=== PATIENT | male | born 1975 | race Caucasian/White ===

== ENCOUNTER 2017-06-09 04:32 | Inpatient (IN) | payer OTHER ==
[2017-06-09] MEDS ORDERED: BISACODYL (EC) 5 MG TAB PO (05:00)
[2017-06-09] MEDS ORDERED: NACL 0.9% 3 ML SYG IV (05:00)
[2017-06-09] MEDS ORDERED: ONDANSETRON 4 MG INJ IV (05:00)
[2017-06-09] MEDS ORDERED: DOCUSATE SODIUM 100 MG CAP PO (05:00)
[2017-06-09] MEDS: FUROSEMIDE 40 MG INJ IV (05:41)
[2017-06-09 06:11] LABS: ADD MAN DIFF? NO
[2017-06-09] MEDS: LEVOFLOXACIN 750MG/D5W (PMX) 150 ML IVPB (06:24)
[2017-06-09 06:25] LABS: BASOPHILS % 0.1 % (0.0-2.0); HEMOGLOBIN 15.4 g/dl (14.0-18.0); LYMPHOCYTES # 1.5 10^3/ul (0.8-2.9); LYMPHOCYTES % 9.7 % (15.0-51.0); MEAN CORPUSCULAR HEMOGLOBIN 32.8 pg (29.0-33.0); MEAN CORPUSCULAR VOLUME 93.6 fl (82.0-101.0); MEAN PLATELET VOLUME 9.8 fl (7.4-10.4); MONOCYTES % 6.2 % (0.0-11.0); NEUTROPHIL # 13.1 10^3/ul (1.6-7.5); NEUTROPHILS % 83.3 % (39.0-77.0); PLATELET COUNT 139 10^3/UL (140-415); RED CELL DISTRIBUTION WIDTH 12.6 % (11.5-14.5)
[2017-06-09 06:25] LABS: WHITE BLOOD COUNT 15.8 10^3/ul (4.8-10.8)
[2017-06-09] MEDS: QUETIAPINE 100 MG TAB PO ×2 (06:25→22:10)
[2017-06-09] MEDS: RISPERIDONE 2 MG TAB PO ×2 (06:25→22:10)
[2017-06-09 06:42] LABS: CREATINE KINASE 341 IU/L (23-200)
[2017-06-09 06:53] LABS: D-DIMER 990.22 ng/ml (<460)
[2017-06-09 06:54] LABS: CK INDEX 0.2; CK-MB 0.75 ng/ml (0.0-2.4); TROPONIN-I < 0.012 ng/ml (0.00-0.12)
[2017-06-09 07:03] LABS: ALANINE AMINOTRANSFERASE 36 IU/L (13-69); ALBUMIN 4.2 g/dl (3.3-4.9); ALBUMIN/GLOBULIN RATIO 1.13; ALKALINE PHOSPHATASE 84 IU/L (42-121); ANION GAP 16 (8-16); ASPARTATE AMINO TRANSFERASE 33 IU/L (15-46); BLOOD UREA NITROGEN 9 mg/dl (7-20); CALCIUM 9.3 mg/dl (8.4-10.2); CARBON DIOXIDE 24 mmol/L (21-31); CHLORIDE 107 mmol/L (97-110); CHOL/HDL RATIO 3.1 RATIO; CHOLESTEROL 145 mg/dl (100-200); CREATININE 0.52 mg/dl (0.61-1.24); GLUCOSE 165 mg/dl (70-220); HDL CHOLESTEROL 46 mg/dl (27-67); LDL CHOLESTEROL,CALCULATED 89 mg/dl; SODIUM 143 mmol/L (135-144); TOTAL PROTEIN 7.9 g/dl (6.1-8.1); TRIGLYCERIDES 52 mg/dl (0-149)
[2017-06-09 07:04] LABS: LACTIC ACID 1.5 mmol/L (0.5-2.0)
[2017-06-09 07:16] LABS: HEMOGLOBIN A1C 5.4 % (0-5.9)
[2017-06-09 07:46] LABS: B-TYPE NATRIURETIC PEPTIDE 37 PG/ML (0-125)
[2017-06-09 08:59] LABS: PLATELET COUNT 138 10^3/UL (140-415)
[2017-06-09] MEDS: ALBUTEROL/IPRATROPIUM (NEB) 3 ML AMP HHN ×4 (09:10→20:39)
[2017-06-09 09:20] LABS: INR 1.39; PROTIME 17.3 Sec (11.9-14.9); PT RATIO 1.4
[2017-06-09 09:21] LABS: PARTIAL THROMBOPLASTIN TIME 38.1 Sec (25.0-35.0)
[2017-06-09 09:32] LABS: THROMBIN TIME 12.8 SEC (13.8-19.1)
[2017-06-09] MEDS: LIDOCAINE 1% (MDV) 10 ML INJ (12:13)
[2017-06-09 12:46] LABS: CREATINE KINASE 277 IU/L (23-200)
[2017-06-09 12:59] LABS: FLD MN% 10.7 %; FLD PMN% 89.3 %; FLD RBC 38000 /uL
[2017-06-09 13:00] LABS: CK INDEX 0.2; CK-MB 0.61 ng/ml (0.0-2.4); FLUID AMYLASE 36 U/L; FLUID TYPE THORACENTESIS FLUID; TROPONIN-I < 0.012 ng/ml (0.00-0.12)
[2017-06-09 13:01] LABS: FLUID TOTAL PROTEIN 5.9 g/dl; FLUID TYPE THORACENTESIS FLUID
[2017-06-09 13:22] LABS: FLUID LD 2141 U/L
[2017-06-09 13:28] LABS: FLD WBC 23833 /cmm
[2017-06-09 13:29] LABS: FLD CLARITY CLOUDY; FLD COLOR RED; PATH REVIEW? YES
[2017-06-09 13:29] LABS: FLD TYPE THORACENTHESIS
[2017-06-09 13:38] LABS: FLUID GLUCOSE < 20 mg/dl; FLUID TYPE THORACENTESIS FLUID
[2017-06-09] MEDS: PROPRANOLOL 20 MG TAB PO ×2 (17:44→22:10)
[2017-06-09] MEDS: NICOTINE (7 MG/24 HR) PATCH TRANSDERM (17:44)
[2017-06-09] MEDS: morphine 2 MG INJ IV (17:44)
[2017-06-09] MEDS: DOCUSATE SODIUM 100 MG CAP PO (22:10)
[2017-06-09 22:31] LABS: SITE Left Upper Forearm; TIME 2210
[2017-06-10] MEDS: IPRATROPIUM (NEB) 0.5 MG/2.5 ML AMP HHN ×5 (01:54→16:18)
[2017-06-10] MEDS: LEVALBUTEROL (NEB) 0.63 MG/3 ML AMP HHN ×5 (01:54→16:19)
[2017-06-10] MEDS: LEVOFLOXACIN 750MG/D5W (PMX) 150 ML IVPB (05:41)
[2017-06-10 07:29] LABS: AADO2 Arterial 134.4 mmHg (7.0-24.0); Allen Test ACCEPTAB; Arterial Base Excess 0.7 mmol/L (-3.0-3); Arterial COHb 0.4 % (0.0-3.0); Arterial Fraction of Oxyhgb 90.4 % (93.0-99.0); Arterial HCO3 24.4 mmol/L (22.0-26.0); Arterial MetHb 0.3 % (0.0-1.5); Arterial Total Hemglobin 14.6 g/dl (12.0-18.0); Arterial pCO2 36.1 mmhg (35-45); MODE NASAL CANNULA; Site Right Radial
[2017-06-10] MEDS: NICOTINE (7 MG/24 HR) PATCH TRANSDERM (08:30)
[2017-06-10] MEDS: RISPERIDONE 2 MG TAB PO ×2 (08:30→20:37)
[2017-06-10] MEDS: QUETIAPINE 100 MG TAB PO ×2 (08:30→20:37)
[2017-06-10 08:31] LABS: ADD MAN DIFF? NO
[2017-06-10] MEDS: PROPRANOLOL 20 MG TAB PO ×2 (08:31→20:36)
[2017-06-10 08:36] LABS: ABNORMAL IP MESSAGE 1; BASOPHILS % 0.1 % (0.0-2.0); EOSINOPHILS % 0.1 % (0.0-7.0); HEMATOCRIT 40.6 % (42.0-52.0); HEMOGLOBIN 13.7 g/dl (14.0-18.0); LYMPHOCYTES # 2.9 10^3/ul (0.8-2.9); LYMPHOCYTES % 16.7 % (15.0-51.0); MEAN CORPUSCULAR HGB CONC 33.7 g/dl (32.0-37.0); MEAN CORPUSCULAR VOLUME 94.9 fl (82.0-101.0); MEAN PLATELET VOLUME 10.1 fl (7.4-10.4); MONOCYTE # 1.9 10^3/ul (0.3-0.9); MONOCYTES % 10.9 % (0.0-11.0); NEUTROPHIL # 12.6 10^3/ul (1.6-7.5); NEUTROPHILS % 71.5 % (39.0-77.0); PLATELET COUNT 154 10^3/UL (140-415); POSITIVE DIFF @See below; RED BLOOD COUNT 4.28 10^6/ul (4.70-6.10)
[2017-06-10 08:36] LABS: WHITE BLOOD COUNT 17.6 10^3/ul (4.8-10.8)
[2017-06-10 08:56] LABS: ALANINE AMINOTRANSFERASE 34 IU/L (13-69); ALBUMIN 3.8 g/dl (3.3-4.9); ALKALINE PHOSPHATASE 68 IU/L (42-121); ANION GAP 13 (8-16); ASPARTATE AMINO TRANSFERASE 21 IU/L (15-46); BILIRUBIN,INDIRECT 0.5 mg/dl (0-1.1); BILIRUBIN,TOTAL 0.5 mg/dl (0.2-1.3); BLOOD UREA NITROGEN 10 mg/dl (7-20); CALCIUM 8.9 mg/dl (8.4-10.2); CARBON DIOXIDE 28 mmol/L (21-31); CHLORIDE 105 mmol/L (97-110); CREATININE 0.61 mg/dl (0.61-1.24); GLUCOSE 116 mg/dl (70-220); PHOSPHORUS 3.2 mg/dl (2.5-4.9); POTASSIUM 3.7 mmol/L (3.5-5.1); SODIUM 142 mmol/L (135-144); TOTAL PROTEIN 7.6 g/dl (6.1-8.1)
[2017-06-10 09:34] LABS: PATH REVIEW CH
[2017-06-10] MEDS ORDERED: VANCOMYCIN IV PER PHARMACY XX (11:30)
[2017-06-10] MEDS: CEFEPIME 1GM/50 ML (PMX) 50 ML IVPB ×2 (14:09→20:49)
[2017-06-10] MEDS: VANCOMYCIN 2 GM in SOD CHLORIDE 0.9% 500 ML IVPB (14:40)
[2017-06-10] MEDS ORDERED: VANCOMYCIN 1.5 GM in SOD CHLORIDE 0.9% 250 ML IVPB (17:00)
[2017-06-10] MEDS ORDERED: VANCOMYCIN 1.75 GM in SOD CHLORIDE 0.9% 500 ML IVPB (17:00)
[2017-06-10 19:58] LABS: ANA SCREEN POSITIVE (NEGATIVE)
[2017-06-10] MEDS: DOCUSATE SODIUM 100 MG CAP PO (20:37)
[2017-06-10] MEDS: VANCOMYCIN 1.5 GM in SOD CHLORIDE 0.9% 250 ML IVPB (20:49)
[2017-06-11] MEDS: LEVALBUTEROL (NEB) 0.63 MG/3 ML AMP HHN ×4 (00:17→23:46)
[2017-06-11] MEDS: IPRATROPIUM (NEB) 0.5 MG/2.5 ML AMP HHN ×4 (00:17→23:46)
[2017-06-11] MEDS: VANCOMYCIN 1.5 GM in SOD CHLORIDE 0.9% 250 ML IVPB ×2 (04:20→12:00)
[2017-06-11] MEDS: QUETIAPINE 100 MG TAB PO ×2 (08:17→21:24)
[2017-06-11] MEDS: RISPERIDONE 2 MG TAB PO ×2 (08:17→21:24)
[2017-06-11] MEDS: PROPRANOLOL 20 MG TAB PO ×2 (08:18→21:26)
[2017-06-11] MEDS: CEFEPIME 1GM/50 ML (PMX) 50 ML IVPB ×2 (08:22→21:21)
[2017-06-11 11:49] LABS: VANCOMYCIN,TROUGH 11.4 ug/ml (10.0-20.0)
[2017-06-11] MEDS: ACETAMINOPHEN 325 MG TAB PO ×2 (12:18→22:17)
[2017-06-11 13:18] LABS: ANA PATTERN NUCLEOLAR
[2017-06-11 15:32] LABS: NIL 0.02 IU/mL; QUANTIFERON(R)-TB GOLD POSITIVE (NEGATIVE); TB-NIL 3.36 IU/mL
[2017-06-11] MEDS: DOCUSATE SODIUM 100 MG CAP PO (21:24)
[2017-06-11] MEDS: VANCOMYCIN 2 GM in SOD CHLORIDE 0.9% 500 ML IVPB (22:03)
[2017-06-11 22:16] LABS: FORTY EIGHT HOUR READING 25 mm (0-9)
[2017-06-12] MEDS: VANCOMYCIN 2 GM in SOD CHLORIDE 0.9% 500 ML IVPB ×3 (04:21→23:11)
[2017-06-12 05:39] LABS: ADD MAN DIFF? NO
[2017-06-12 05:44] LABS: ABNORMAL IP MESSAGE 1; BASOPHILS % 0.3 % (0.0-2.0); EOSINOPHILS # 0.2 10^3/ul (0.0-0.5); EOSINOPHILS % 1.2 % (0.0-7.0); HEMATOCRIT 41.6 % (42.0-52.0); LYMPHOCYTES # 2.3 10^3/ul (0.8-2.9); LYMPHOCYTES % 17.3 % (15.0-51.0); MEAN CORPUSCULAR HEMOGLOBIN 32.4 pg (29.0-33.0); MEAN CORPUSCULAR HGB CONC 33.7 g/dl (32.0-37.0); MEAN CORPUSCULAR VOLUME 96.3 fl (82.0-101.0); MEAN PLATELET VOLUME 10.2 fl (7.4-10.4); MONOCYTE # 1.7 10^3/ul (0.3-0.9); MONOCYTES % 12.8 % (0.0-11.0); NEUTROPHILS % 67.7 % (39.0-77.0); PLATELET COUNT 155 10^3/UL (140-415); POSITIVE DIFF @See below; RED BLOOD COUNT 4.32 10^6/ul (4.70-6.10); RED CELL DISTRIBUTION WIDTH 12.9 % (11.5-14.5)
[2017-06-12 05:44] LABS: WHITE BLOOD COUNT 13.3 10^3/ul (4.8-10.8)
[2017-06-12 06:04] LABS: ANION GAP 16 (8-16); BLOOD UREA NITROGEN 8 mg/dl (7-20); CALCIUM 8.8 mg/dl (8.4-10.2); CARBON DIOXIDE 23 mmol/L (21-31); CHLORIDE 103 mmol/L (97-110); CREATININE 0.58 mg/dl (0.61-1.24); GLUCOSE 140 mg/dl (70-220); MAGNESIUM 1.8 mg/dl (1.7-2.5); PHOSPHORUS 3.7 mg/dl (2.5-4.9); POTASSIUM 3.8 mmol/L (3.5-5.1); SODIUM 138 mmol/L (135-144)
[2017-06-12] MEDS: IPRATROPIUM (NEB) 0.5 MG/2.5 ML AMP HHN ×2 (07:43→17:30)
[2017-06-12] MEDS: LEVALBUTEROL (NEB) 0.63 MG/3 ML AMP HHN ×2 (07:43→17:30)
[2017-06-12] MEDS: QUETIAPINE 100 MG TAB PO ×2 (09:09→21:35)
[2017-06-12] MEDS: CEFEPIME 1GM/50 ML (PMX) 50 ML IVPB ×2 (09:10→21:34)
[2017-06-12] MEDS: RISPERIDONE 2 MG TAB PO ×2 (09:10→21:35)
[2017-06-12] MEDS: PROPRANOLOL 20 MG TAB PO ×2 (13:14→21:34)
[2017-06-12] MEDS: ENOXAPARIN 40 MG/0.4 ML SYG SC (18:14)
[2017-06-12 21:16] LABS: SEVENTY TWO HOUR READING 25 mm (0-9)
[2017-06-12] MEDS: DOCUSATE SODIUM 100 MG CAP PO (21:34)
[2017-06-12 22:31] LABS: VANCOMYCIN,TROUGH 6.1 ug/ml (10.0-20.0)
[2017-06-13] MEDS: LEVALBUTEROL (NEB) 0.63 MG/3 ML AMP HHN ×3 (00:12→17:07)
[2017-06-13] MEDS: IPRATROPIUM (NEB) 0.5 MG/2.5 ML AMP HHN ×3 (00:12→17:08)
[2017-06-13 05:38] LABS: ADD MAN DIFF? NO
[2017-06-13 05:40] LABS: WHITE BLOOD COUNT 13.8 10^3/ul (4.8-10.8)
[2017-06-13 05:40] LABS: ABNORMAL IP MESSAGE 1; BASOPHILS % 0.3 % (0.0-2.0); EOSINOPHILS # 0.2 10^3/ul (0.0-0.5); EOSINOPHILS % 1.3 % (0.0-7.0); HEMATOCRIT 39.5 % (42.0-52.0); HEMOGLOBIN 13.4 g/dl (14.0-18.0); LYMPHOCYTES # 2.3 10^3/ul (0.8-2.9); LYMPHOCYTES % 16.4 % (15.0-51.0); MEAN CORPUSCULAR HEMOGLOBIN 32.5 pg (29.0-33.0); MEAN CORPUSCULAR HGB CONC 33.9 g/dl (32.0-37.0); MEAN CORPUSCULAR VOLUME 95.9 fl (82.0-101.0); MEAN PLATELET VOLUME 9.8 fl (7.4-10.4); MONOCYTE # 1.8 10^3/ul (0.3-0.9); MONOCYTES % 13.3 % (0.0-11.0); NEUTROPHIL # 9.4 10^3/ul (1.6-7.5); NEUTROPHILS % 67.8 % (39.0-77.0); PLATELET COUNT 157 10^3/UL (140-415); POSITIVE DIFF @See below; RED BLOOD COUNT 4.12 10^6/ul (4.70-6.10); RED CELL DISTRIBUTION WIDTH 12.8 % (11.5-14.5)
[2017-06-13 05:59] LABS: INR 1.42; PROTIME 17.6 Sec (11.9-14.9); PT RATIO 1.4
[2017-06-13] MEDS: VANCOMYCIN 2 GM in SOD CHLORIDE 0.9% 500 ML IVPB ×3 (06:02→23:11)
[2017-06-13 06:09] LABS: ANION GAP 14 (8-16); BLOOD UREA NITROGEN 7 mg/dl (7-20); CALCIUM 8.4 mg/dl (8.4-10.2); CARBON DIOXIDE 27 mmol/L (21-31); CHLORIDE 105 mmol/L (97-110); CREATININE 0.49 mg/dl (0.61-1.24); GLUCOSE 120 mg/dl (70-220); POTASSIUM 3.9 mmol/L (3.5-5.1); SODIUM 142 mmol/L (135-144)
[2017-06-13] MEDS: RISPERIDONE 2 MG TAB PO ×2 (10:06→21:23)
[2017-06-13] MEDS: QUETIAPINE 100 MG TAB PO ×2 (10:06→21:22)
[2017-06-13] MEDS: CEFEPIME 1GM/50 ML (PMX) 50 ML IVPB ×2 (10:07→21:21)
[2017-06-13] MEDS: PROPRANOLOL 20 MG TAB PO ×2 (10:07→21:22)
[2017-06-13] MEDS: DOCUSATE SODIUM 100 MG CAP PO (21:22)
[2017-06-14] MEDS: LEVALBUTEROL (NEB) 0.63 MG/3 ML AMP HHN ×3 (00:23→15:52)
[2017-06-14] MEDS: IPRATROPIUM (NEB) 0.5 MG/2.5 ML AMP HHN ×3 (00:23→15:52)
[2017-06-14 06:17] LABS: ADD MAN DIFF? NO
[2017-06-14 06:19] LABS: ABNORMAL IP MESSAGE 1; BASOPHIL # 0.1 10^3/ul (0.0-0.1); BASOPHILS % 0.4 % (0.0-2.0); EOSINOPHILS # 0.3 10^3/ul (0.0-0.5); EOSINOPHILS % 2.4 % (0.0-7.0); HEMATOCRIT 38.7 % (42.0-52.0); HEMOGLOBIN 12.9 g/dl (14.0-18.0); LYMPHOCYTES # 2.7 10^3/ul (0.8-2.9); LYMPHOCYTES % 19.9 % (15.0-51.0); MEAN CORPUSCULAR HEMOGLOBIN 32.3 pg (29.0-33.0); MEAN CORPUSCULAR HGB CONC 33.3 g/dl (32.0-37.0); MEAN PLATELET VOLUME 10.1 fl (7.4-10.4); MONOCYTE # 1.7 10^3/ul (0.3-0.9); MONOCYTES % 12.5 % (0.0-11.0); NEUTROPHIL # 8.7 10^3/ul (1.6-7.5); NEUTROPHILS % 63.9 % (39.0-77.0); PLATELET COUNT 164 10^3/UL (140-415); POSITIVE DIFF @See below; RED BLOOD COUNT 3.99 10^6/ul (4.70-6.10); RED CELL DISTRIBUTION WIDTH 12.8 % (11.5-14.5)
[2017-06-14 06:19] LABS: WHITE BLOOD COUNT 13.6 10^3/ul (4.8-10.8)
[2017-06-14 06:40] LABS: VANCOMYCIN,TROUGH 21.7 ug/ml (10.0-20.0)
[2017-06-14] MEDS: CEFEPIME 1GM/50 ML (PMX) 50 ML IVPB ×2 (08:40→20:37)
[2017-06-14] MEDS: QUETIAPINE 100 MG TAB PO ×2 (08:41→20:35)
[2017-06-14] MEDS: RISPERIDONE 2 MG TAB PO ×2 (08:42→20:35)
[2017-06-14] MEDS: PROPRANOLOL 20 MG TAB PO ×2 (08:43→20:37)
[2017-06-14] MEDS: VANCOMYCIN 1.25 GM in SOD CHLORIDE 0.9% 250 ML IVPB ×2 (11:17→17:42)
[2017-06-14] MEDS: DOCUSATE SODIUM 100 MG CAP PO (20:35)
[2017-06-15] MEDS: IPRATROPIUM (NEB) 0.5 MG/2.5 ML AMP HHN ×3 (00:39→15:01)
[2017-06-15] MEDS: LEVALBUTEROL (NEB) 0.63 MG/3 ML AMP HHN ×3 (00:39→15:01)
[2017-06-15] MEDS: VANCOMYCIN 1.25 GM in SOD CHLORIDE 0.9% 250 ML IVPB ×3 (02:48→18:00)
[2017-06-15 06:14] LABS: ADD MAN DIFF? NO
[2017-06-15 06:31] LABS: BASOPHILS % 0.3 % (0.0-2.0); EOSINOPHILS # 0.3 10^3/ul (0.0-0.5); EOSINOPHILS % 2.8 % (0.0-7.0); HEMATOCRIT 38.8 % (42.0-52.0); LYMPHOCYTES # 2.3 10^3/ul (0.8-2.9); LYMPHOCYTES % 19.7 % (15.0-51.0); MEAN CORPUSCULAR HEMOGLOBIN 32.3 pg (29.0-33.0); MEAN CORPUSCULAR HGB CONC 33.5 g/dl (32.0-37.0); MEAN CORPUSCULAR VOLUME 96.3 fl (82.0-101.0); MEAN PLATELET VOLUME 9.9 fl (7.4-10.4); MONOCYTE # 1.4 10^3/ul (0.3-0.9); MONOCYTES % 12.5 % (0.0-11.0); NEUTROPHIL # 7.3 10^3/ul (1.6-7.5); NEUTROPHILS % 63.5 % (39.0-77.0); PLATELET COUNT 168 10^3/UL (140-415); RED BLOOD COUNT 4.03 10^6/ul (4.70-6.10); RED CELL DISTRIBUTION WIDTH 12.8 % (11.5-14.5)
[2017-06-15 06:31] LABS: WHITE BLOOD COUNT 11.5 10^3/ul (4.8-10.8)
[2017-06-15 06:53] LABS: ANION GAP 14 (8-16); BLOOD UREA NITROGEN 8 mg/dl (7-20); CALCIUM 8.7 mg/dl (8.4-10.2); CARBON DIOXIDE 27 mmol/L (21-31); CHLORIDE 104 mmol/L (97-110); CREATININE 0.55 mg/dl (0.61-1.24); GLUCOSE 110 mg/dl (70-220); SODIUM 141 mmol/L (135-144)
[2017-06-15] MEDS: CEFEPIME 1GM/50 ML (PMX) 50 ML IVPB ×2 (09:01→21:54)
[2017-06-15] MEDS: QUETIAPINE 100 MG TAB PO ×2 (09:01→21:54)
[2017-06-15] MEDS: RISPERIDONE 2 MG TAB PO ×2 (09:01→21:54)
[2017-06-15] MEDS: PROPRANOLOL 20 MG TAB PO ×2 (09:02→21:55)
[2017-06-15] MEDS: LACTOBACILLUS RHAMNOSUS CAP PO ×2 (13:41→21:55)
[2017-06-15] MEDS: ENOXAPARIN 40 MG/0.4 ML SYG SC (13:41)
[2017-06-15 17:52] LABS: VANCOMYCIN,TROUGH < 5.0 ug/ml (10.0-20.0)
[2017-06-15] MEDS: DOCUSATE SODIUM 100 MG CAP PO (21:55)
[2017-06-15] MEDS: VANCOMYCIN 500MG/NS (PMX) 100 ML IVPB (23:04)
[2017-06-16] MEDS: LEVALBUTEROL (NEB) 0.63 MG/3 ML AMP HHN ×4 (01:21→23:29)
[2017-06-16] MEDS: IPRATROPIUM (NEB) 0.5 MG/2.5 ML AMP HHN ×4 (01:22→23:29)
[2017-06-16] MEDS: VANCOMYCIN 1.75 GM in SOD CHLORIDE 0.9% 500 ML IVPB ×3 (02:48→18:34)
[2017-06-16 04:48] LABS: ADD MAN DIFF? NO
[2017-06-16 04:54] LABS: BASOPHIL # 0.1 10^3/ul (0.0-0.1); BASOPHILS % 0.5 % (0.0-2.0); EOSINOPHILS # 0.3 10^3/ul (0.0-0.5); EOSINOPHILS % 2.9 % (0.0-7.0); HEMATOCRIT 37.7 % (42.0-52.0); HEMOGLOBIN 12.4 g/dl (14.0-18.0); LYMPHOCYTES # 2.1 10^3/ul (0.8-2.9); LYMPHOCYTES % 19.1 % (15.0-51.0); MEAN CORPUSCULAR HEMOGLOBIN 31.7 pg (29.0-33.0); MEAN CORPUSCULAR HGB CONC 32.9 g/dl (32.0-37.0); MEAN CORPUSCULAR VOLUME 96.4 fl (82.0-101.0); MEAN PLATELET VOLUME 9.5 fl (7.4-10.4); MONOCYTE # 1.2 10^3/ul (0.3-0.9); MONOCYTES % 10.6 % (0.0-11.0); NEUTROPHIL # 7.3 10^3/ul (1.6-7.5); PLATELET COUNT 168 10^3/UL (140-415); RED BLOOD COUNT 3.91 10^6/ul (4.70-6.10); RED CELL DISTRIBUTION WIDTH 12.7 % (11.5-14.5)
[2017-06-16 04:54] LABS: WHITE BLOOD COUNT 11.1 10^3/ul (4.8-10.8)
[2017-06-16 05:16] LABS: ANION GAP 13 (8-16); BLOOD UREA NITROGEN 7 mg/dl (7-20); CALCIUM 8.8 mg/dl (8.4-10.2); CARBON DIOXIDE 28 mmol/L (21-31); CHLORIDE 103 mmol/L (97-110); CREATININE 0.58 mg/dl (0.61-1.24); GLUCOSE 154 mg/dl (70-220); POTASSIUM 3.7 mmol/L (3.5-5.1); SODIUM 140 mmol/L (135-144)
[2017-06-16] MEDS: PROPRANOLOL 20 MG TAB PO ×2 (09:22→21:22)
[2017-06-16] MEDS: CEFEPIME 1GM/50 ML (PMX) 50 ML IVPB ×2 (09:22→23:52)
[2017-06-16] MEDS: LACTOBACILLUS RHAMNOSUS CAP PO ×2 (09:22→21:21)
[2017-06-16] MEDS: RISPERIDONE 2 MG TAB PO ×2 (09:23→21:22)
[2017-06-16] MEDS: QUETIAPINE 100 MG TAB PO ×2 (09:23→21:21)
[2017-06-16] MEDS: ENOXAPARIN 40 MG/0.4 ML SYG SC (09:24)
[2017-06-16] MEDS: DOCUSATE SODIUM 100 MG CAP PO (21:21)
[2017-06-16] MEDS ORDERED: VANCOMYCIN IV PER PHARMACY XX (22:30)
[2017-06-17] MEDS: VANCOMYCIN 1.75 GM in SOD CHLORIDE 0.9% 500 ML IVPB ×3 (01:59→18:06)
[2017-06-17 05:50] LABS: ADD MAN DIFF? NO
[2017-06-17 05:58] LABS: WHITE BLOOD COUNT 12.2 10^3/ul (4.8-10.8)
[2017-06-17 05:58] LABS: BASOPHILS % 0.3 % (0.0-2.0); EOSINOPHILS # 0.3 10^3/ul (0.0-0.5); EOSINOPHILS % 2.8 % (0.0-7.0); HEMATOCRIT 37.4 % (42.0-52.0); HEMOGLOBIN 12.5 g/dl (14.0-18.0); LYMPHOCYTES # 2.1 10^3/ul (0.8-2.9); LYMPHOCYTES % 16.8 % (15.0-51.0); MEAN CORPUSCULAR HEMOGLOBIN 32.1 pg (29.0-33.0); MEAN CORPUSCULAR HGB CONC 33.4 g/dl (32.0-37.0); MEAN CORPUSCULAR VOLUME 95.9 fl (82.0-101.0); MEAN PLATELET VOLUME 9.9 fl (7.4-10.4); MONOCYTE # 1.3 10^3/ul (0.3-0.9); MONOCYTES % 10.6 % (0.0-11.0); NEUTROPHIL # 8.4 10^3/ul (1.6-7.5); NEUTROPHILS % 68.8 % (39.0-77.0); PLATELET COUNT 166 10^3/UL (140-415); RED CELL DISTRIBUTION WIDTH 12.8 % (11.5-14.5)
[2017-06-17 06:51] LABS: ANION GAP 13 (8-16); BLOOD UREA NITROGEN 8 mg/dl (7-20); CALCIUM 8.8 mg/dl (8.4-10.2); CARBON DIOXIDE 29 mmol/L (21-31); CHLORIDE 103 mmol/L (97-110); CREATININE 0.55 mg/dl (0.61-1.24); GLUCOSE 105 mg/dl (70-220); SODIUM 141 mmol/L (135-144)
[2017-06-17] MEDS: LEVALBUTEROL (NEB) 0.63 MG/3 ML AMP HHN ×3 (08:10→23:57)
[2017-06-17] MEDS: IPRATROPIUM (NEB) 0.5 MG/2.5 ML AMP HHN ×3 (08:10→23:57)
[2017-06-17] MEDS: LACTOBACILLUS RHAMNOSUS CAP PO ×2 (08:45→22:13)
[2017-06-17] MEDS: QUETIAPINE 100 MG TAB PO ×2 (08:45→22:13)
[2017-06-17] MEDS: PROPRANOLOL 20 MG TAB PO ×2 (08:46→22:13)
[2017-06-17] MEDS: RISPERIDONE 2 MG TAB PO ×2 (08:46→22:20)
[2017-06-17] MEDS: ENOXAPARIN 40 MG/0.4 ML SYG SC (08:47)
[2017-06-17] MEDS: CEFEPIME 1GM/50 ML (PMX) 50 ML IVPB ×2 (08:47→22:14)
[2017-06-17] MEDS: DOCUSATE SODIUM 100 MG CAP PO (22:13)
[2017-06-18] MEDS: VANCOMYCIN 1.75 GM in SOD CHLORIDE 0.9% 500 ML IVPB ×3 (03:42→18:10)
[2017-06-18 07:07] LABS: ADD MAN DIFF? NO
[2017-06-18 07:11] LABS: BASOPHIL # 0.1 10^3/ul (0.0-0.1); BASOPHILS % 0.5 % (0.0-2.0); EOSINOPHILS # 0.4 10^3/ul (0.0-0.5); EOSINOPHILS % 2.8 % (0.0-7.0); HEMATOCRIT 37.8 % (42.0-52.0); HEMOGLOBIN 12.6 g/dl (14.0-18.0); LYMPHOCYTES # 2.1 10^3/ul (0.8-2.9); LYMPHOCYTES % 16.5 % (15.0-51.0); MEAN CORPUSCULAR HGB CONC 33.3 g/dl (32.0-37.0); MEAN CORPUSCULAR VOLUME 95.9 fl (82.0-101.0); MEAN PLATELET VOLUME 9.9 fl (7.4-10.4); MONOCYTE # 1.2 10^3/ul (0.3-0.9); MONOCYTES % 9.6 % (0.0-11.0); NEUTROPHILS % 69.8 % (39.0-77.0); PLATELET COUNT 162 10^3/UL (140-415); RED BLOOD COUNT 3.94 10^6/ul (4.70-6.10); RED CELL DISTRIBUTION WIDTH 12.6 % (11.5-14.5)
[2017-06-18] MEDS: LEVALBUTEROL (NEB) 0.63 MG/3 ML AMP HHN ×2 (08:12→16:38)
[2017-06-18] MEDS: IPRATROPIUM (NEB) 0.5 MG/2.5 ML AMP HHN ×2 (08:12→16:38)
[2017-06-18] MEDS: PROPRANOLOL 20 MG TAB PO ×3 (09:00→20:16)
[2017-06-18] MEDS: RISPERIDONE 2 MG TAB PO ×3 (09:00→20:15)
[2017-06-18] MEDS: QUETIAPINE 100 MG TAB PO ×3 (09:00→20:16)
[2017-06-18] MEDS: LACTOBACILLUS RHAMNOSUS CAP PO ×3 (09:00→20:15)
[2017-06-18] MEDS: CEFEPIME 1GM/50 ML (PMX) 50 ML IVPB ×2 (09:02→22:40)
[2017-06-18] MEDS: ENOXAPARIN 40 MG/0.4 ML SYG SC (09:02)
[2017-06-18] MEDS: DOCUSATE SODIUM 100 MG CAP PO (20:15)
[2017-06-19] MEDS: SURGIFOAM POWDER 1 GM KIT MM
[2017-06-19] MEDS: THROMBIN 5000 UNIT VIAL TOP
[2017-06-19] MEDS: IPRATROPIUM (NEB) 0.5 MG/2.5 ML AMP HHN ×4 (00:35→23:40)
[2017-06-19] MEDS: LEVALBUTEROL (NEB) 0.63 MG/3 ML AMP HHN ×4 (00:35→23:40)
[2017-06-19] MEDS: VANCOMYCIN 1.75 GM in SOD CHLORIDE 0.9% 500 ML IVPB ×3 (02:12→18:03)
[2017-06-19 06:06] LABS: ADD MAN DIFF? NO
[2017-06-19 06:09] LABS: BASOPHIL # 0.1 10^3/ul (0.0-0.1); BASOPHILS % 0.5 % (0.0-2.0); EOSINOPHILS # 0.3 10^3/ul (0.0-0.5); EOSINOPHILS % 2.5 % (0.0-7.0); HEMATOCRIT 37.9 % (42.0-52.0); HEMOGLOBIN 12.7 g/dl (14.0-18.0); LYMPHOCYTES # 2.1 10^3/ul (0.8-2.9); LYMPHOCYTES % 16.5 % (15.0-51.0); MEAN CORPUSCULAR HEMOGLOBIN 32.2 pg (29.0-33.0); MEAN CORPUSCULAR HGB CONC 33.5 g/dl (32.0-37.0); MEAN CORPUSCULAR VOLUME 95.9 fl (82.0-101.0); MEAN PLATELET VOLUME 10.4 fl (7.4-10.4); MONOCYTE # 1.2 10^3/ul (0.3-0.9); MONOCYTES % 9.2 % (0.0-11.0); NEUTROPHIL # 8.9 10^3/ul (1.6-7.5); NEUTROPHILS % 70.5 % (39.0-77.0); PLATELET COUNT 158 10^3/UL (140-415); RED BLOOD COUNT 3.95 10^6/ul (4.70-6.10); RED CELL DISTRIBUTION WIDTH 12.4 % (11.5-14.5)
[2017-06-19 06:09] LABS: WHITE BLOOD COUNT 12.6 10^3/ul (4.8-10.8)
[2017-06-19 06:31] LABS: BLOOD UREA NITROGEN 10 mg/dl (7-20)
[2017-06-19] MEDS: QUETIAPINE 100 MG TAB PO ×2 (09:00→21:08)
[2017-06-19] MEDS: LACTOBACILLUS RHAMNOSUS CAP PO ×2 (09:00→21:08)
[2017-06-19] MEDS: ENOXAPARIN 40 MG/0.4 ML SYG SC (09:00)
[2017-06-19] MEDS: PROPRANOLOL 20 MG TAB PO ×2 (09:00→21:08)
[2017-06-19] MEDS: RISPERIDONE 2 MG TAB PO ×2 (09:00→21:08)
[2017-06-19] MEDS: CEFEPIME 1GM/50 ML (PMX) 50 ML IVPB ×2 (09:17→21:07)
[2017-06-19 10:06] LABS: VANCOMYCIN,TROUGH 12.2 ug/ml (10.0-20.0)
[2017-06-19] MEDS ORDERED: LIDOCAINE 1% (MPF) 30 ML INJ (12:27)
[2017-06-19] MEDS ORDERED: MIDAZOLAM 1 MG/ML 2 ML INJ (12:44)
[2017-06-19] MEDS ORDERED: PROPOFOL 20 ML ×2 (12:44→14:36)
[2017-06-19] MEDS ORDERED: PHENYLephrine (100 MCG/ML) 5ML SYG (12:50)
[2017-06-19] MEDS ORDERED: SURGIFOAM POWDER 1 GM KIT (14:03)
[2017-06-19] MEDS ORDERED: THROMBIN 5000 UNIT VIAL (14:05)
[2017-06-19] MEDS ORDERED: ETOMIDATE 20 MG INJ (14:36)
[2017-06-19] MEDS ORDERED: GLYCOPYRROLATE 0.4 MG INJ (14:36)
[2017-06-19] MEDS ORDERED: ROCURONIUM 50 MG INJ (14:36)
[2017-06-19] MEDS ORDERED: NEOSTIGMINE 3 MG/3 ML SYRINGE (14:36)
[2017-06-19] MEDS ORDERED: PROVENTIL HFA 6.7GM INHALER (14:58)
[2017-06-19 16:37] LABS: ADD MAN DIFF? NO
[2017-06-19 16:40] LABS: BASOPHIL # 0.1 10^3/ul (0.0-0.1); BASOPHILS % 0.3 % (0.0-2.0); EOSINOPHILS # 0.2 10^3/ul (0.0-0.5); EOSINOPHILS % 1.4 % (0.0-7.0); HEMATOCRIT 39.3 % (42.0-52.0); LYMPHOCYTES # 1.6 10^3/ul (0.8-2.9); LYMPHOCYTES % 10.8 % (15.0-51.0); MEAN CORPUSCULAR HEMOGLOBIN 32.2 pg (29.0-33.0); MEAN CORPUSCULAR HGB CONC 33.1 g/dl (32.0-37.0); MEAN CORPUSCULAR VOLUME 97.3 fl (82.0-101.0); MEAN PLATELET VOLUME 10.3 fl (7.4-10.4); MONOCYTE # 1.2 10^3/ul (0.3-0.9); MONOCYTES % 8.4 % (0.0-11.0); NEUTROPHIL # 11.3 10^3/ul (1.6-7.5); NEUTROPHILS % 78.2 % (39.0-77.0); PLATELET COUNT 148 10^3/UL (140-415); RED BLOOD COUNT 4.04 10^6/ul (4.70-6.10); RED CELL DISTRIBUTION WIDTH 12.7 % (11.5-14.5)
[2017-06-19 16:40] LABS: WHITE BLOOD COUNT 14.5 10^3/ul (4.8-10.8)
[2017-06-19 16:53] LABS: AADO2 Arterial 355.7 mmHg (7.0-24.0); Allen Test ACCEPTAB; Arterial Base Excess 1.9 mmol/L (-3.0-3); Arterial Blood Gas Oxygen Sat 96.3 mmHG (95.0-98.0); Arterial COHb 0.5 % (0.0-3.0); Arterial Fraction of Oxyhgb 95.5 % (93.0-99.0); Arterial MetHb 0.3 % (0.0-1.5); Arterial Total Hemglobin 14.2 g/dl (12.0-18.0); Arterial pCO2 49.5 mmhg (35-45); Blood Gas IEPAP 15/5; Blood Gas PS 10; MODE MASK - BIPAP; Site Right Radial
[2017-06-19 17:02] LABS: ALANINE AMINOTRANSFERASE 46 IU/L (13-69); ALBUMIN 3.3 g/dl (3.3-4.9); ALBUMIN/GLOBULIN RATIO 0.76; ALKALINE PHOSPHATASE 97 IU/L (42-121); ANION GAP 14 (8-16); ASPARTATE AMINO TRANSFERASE 41 IU/L (15-46); BILIRUBIN,INDIRECT 0.7 mg/dl (0-1.1); BILIRUBIN,TOTAL 0.7 mg/dl (0.2-1.3); BLOOD UREA NITROGEN 10 mg/dl (7-20); CALCIUM 8.7 mg/dl (8.4-10.2); CARBON DIOXIDE 27 mmol/L (21-31); CHLORIDE 104 mmol/L (97-110); CREATININE 0.56 mg/dl (0.61-1.24); GLUCOSE 124 mg/dl (70-220); POTASSIUM 4.1 mmol/L (3.5-5.1); SODIUM 141 mmol/L (135-144); TOTAL PROTEIN 7.6 g/dl (6.1-8.1)
[2017-06-19] MEDS: NICOTINE (7 MG/24 HR) PATCH TRANSDERM (21:07)
[2017-06-19] MEDS: DOCUSATE SODIUM 100 MG CAP PO (21:08)
[2017-06-20] MEDS: morphine 2 MG INJ IV ×2 (00:30→18:18)
[2017-06-20] MEDS: LEVALBUTEROL (NEB) 0.63 MG/3 ML AMP HHN ×3 (01:20→15:57)
[2017-06-20] MEDS ORDERED: LORAZEPAM 2 MG INJ IM (02:00)
[2017-06-20] MEDS: VANCOMYCIN 1.75 GM in SOD CHLORIDE 0.9% 500 ML IVPB ×3 (02:25→18:04)
[2017-06-20] MEDS: LORAZEPAM 2 MG INJ IV (02:40)
[2017-06-20 03:38] LABS: AADO2 Arterial 267.8 mmHg (7.0-24.0); Allen Test ACCEPTAB; Arterial Blood Gas Oxygen Sat 93.1 mmHG (95.0-98.0); Arterial COHb 0.7 % (0.0-3.0); Arterial Fraction of Oxyhgb 92.2 % (93.0-99.0); Arterial HCO3 27.9 mmol/L (22.0-26.0); Arterial MetHb 0.3 % (0.0-1.5); Arterial Total Hemglobin 13.6 g/dl (12.0-18.0); Arterial pCO2 39.3 mmhg (35-45); MODE MASK - SIMPLE; Site Right Radial
[2017-06-20 05:47] LABS: ADD MAN DIFF? NO
[2017-06-20 05:51] LABS: ABNORMAL IP MESSAGE 1; BASOPHIL # 0.1 10^3/ul (0.0-0.1); BASOPHILS % 0.3 % (0.0-2.0); EOSINOPHILS # 0.1 10^3/ul (0.0-0.5); EOSINOPHILS % 0.2 % (0.0-7.0); HEMATOCRIT 37.2 % (42.0-52.0); HEMOGLOBIN 12.5 g/dl (14.0-18.0); LYMPHOCYTES % 9.8 % (15.0-51.0); MEAN CORPUSCULAR HEMOGLOBIN 32.2 pg (29.0-33.0); MEAN CORPUSCULAR HGB CONC 33.6 g/dl (32.0-37.0); MEAN CORPUSCULAR VOLUME 95.9 fl (82.0-101.0); MEAN PLATELET VOLUME 10.7 fl (7.4-10.4); MONOCYTE # 2.3 10^3/ul (0.3-0.9); MONOCYTES % 11.2 % (0.0-11.0); NEUTROPHIL # 15.7 10^3/ul (1.6-7.5); NEUTROPHILS % 77.6 % (39.0-77.0); PLATELET COUNT 123 10^3/UL (140-415); POSITIVE DIFF @See below; RED BLOOD COUNT 3.88 10^6/ul (4.70-6.10); RED CELL DISTRIBUTION WIDTH 12.7 % (11.5-14.5)
[2017-06-20 05:51] LABS: WHITE BLOOD COUNT 20.3 10^3/ul (4.8-10.8)
[2017-06-20] MEDS: ENOXAPARIN 40 MG/0.4 ML SYG SC (09:00)
[2017-06-20] MEDS: IPRATROPIUM (NEB) 0.5 MG/2.5 ML AMP HHN ×2 (09:26→15:57)
[2017-06-20] MEDS: PROPRANOLOL 20 MG TAB PO ×2 (09:56→21:15)
[2017-06-20] MEDS: LACTOBACILLUS RHAMNOSUS CAP PO ×2 (09:56→21:15)
[2017-06-20] MEDS: CEFEPIME 1GM/50 ML (PMX) 50 ML IVPB ×2 (09:56→21:18)
[2017-06-20] MEDS: RISPERIDONE 2 MG TAB PO ×2 (09:56→20:40)
[2017-06-20] MEDS: QUETIAPINE 100 MG TAB PO ×2 (09:56→20:40)
[2017-06-20 11:46] LABS: AADO2 Arterial 293.1 mmHg (7.0-24.0); Allen Test ACCEPTAB; Arterial Blood Gas Oxygen Sat 96.2 mmHG (95.0-98.0); Arterial COHb 0.4 % (0.0-3.0); Arterial Fraction of Oxyhgb 95.5 % (93.0-99.0); Arterial HCO3 28.9 mmol/L (22.0-26.0); Arterial MetHb 0.3 % (0.0-1.5); Arterial Total Hemglobin 13.6 g/dl (12.0-18.0); Arterial pCO2 44.2 mmhg (35-45); Blood Gas IEPAP 15/5; MODE MASK - BIPAP; Site Right Radial
[2017-06-20] MEDS: DOCUSATE SODIUM 100 MG CAP PO (21:15)
[2017-06-21] MEDS: LEVALBUTEROL (NEB) 0.63 MG/3 ML AMP HHN ×3 (00:30→15:31)
[2017-06-21] MEDS: IPRATROPIUM (NEB) 0.5 MG/2.5 ML AMP HHN ×3 (00:30→15:31)
[2017-06-21] MEDS: VANCOMYCIN 1.75 GM in SOD CHLORIDE 0.9% 500 ML IVPB ×3 (02:00→18:12)
[2017-06-21 06:32] LABS: ADD MAN DIFF? NO
[2017-06-21 06:34] LABS: BLOOD UREA NITROGEN 9 mg/dl (7-20)
[2017-06-21 06:34] LABS: CREATININE 0.59 mg/dl (0.61-1.24)
[2017-06-21] MEDS: RISPERIDONE 2 MG TAB PO ×2 (08:24→20:41)
[2017-06-21] MEDS: PROPRANOLOL 20 MG TAB PO ×2 (08:24→20:41)
[2017-06-21] MEDS: LACTOBACILLUS RHAMNOSUS CAP PO ×2 (08:24→20:40)
[2017-06-21] MEDS: CEFEPIME 1GM/50 ML (PMX) 50 ML IVPB ×2 (08:24→20:40)
[2017-06-21] MEDS: QUETIAPINE 100 MG TAB PO ×2 (08:25→21:48)
[2017-06-21] MEDS: ENOXAPARIN 40 MG/0.4 ML SYG SC ×2 (08:25→16:00)
[2017-06-21 10:06] LABS: HEMATOCRIT 33.7 % (42.0-52.0); HEMOGLOBIN 11.1 g/dl (14.0-18.0); MEAN CORPUSCULAR HGB CONC 32.9 g/dl (32.0-37.0); MEAN CORPUSCULAR VOLUME 97.1 fl (82.0-101.0); MEAN PLATELET VOLUME 11.2 fl (7.4-10.4); NEUTROPHILS % 68.5 % (39.0-77.0); PLATELET COUNT 80 10^3/UL (140-415); RED BLOOD COUNT 3.47 10^6/ul (4.70-6.10); RED CELL DISTRIBUTION WIDTH 12.6 % (11.5-14.5)
[2017-06-21 10:06] LABS: WHITE BLOOD COUNT 13.2 10^3/ul (4.8-10.8)
[2017-06-21 10:07] LABS: BASOPHILS % 0.5 % (0.0-2.0); EOSINOPHILS % 1.7 % (0.0-7.0); LYMPHOCYTES % 17.5 % (15.0-51.0); MONOCYTES % 11.3 % (0.0-11.0)
[2017-06-21 11:06] LABS: AADO2 Arterial 318.6 mmHg (7.0-24.0); Allen Test ACCEPTAB; Arterial Base Excess 5.6 mmol/L (-3.0-3); Arterial Blood Gas Oxygen Sat 92.4 mmHG (95.0-98.0); Arterial COHb 0.4 % (0.0-3.0); Arterial Fraction of Oxyhgb 91.8 % (93.0-99.0); Arterial HCO3 29.7 mmol/L (22.0-26.0); Arterial MetHb 0.3 % (0.0-1.5); Arterial Total Hemglobin 12.9 g/dl (12.0-18.0); Arterial pCO2 41.5 mmhg (35-45); MODE HFNC; Site Right Radial
[2017-06-21] MEDS: DOCUSATE SODIUM 100 MG CAP PO (20:40)
[2017-06-22] MEDS: LEVALBUTEROL (NEB) 0.63 MG/3 ML AMP HHN ×4 (00:13→23:37)
[2017-06-22] MEDS: IPRATROPIUM (NEB) 0.5 MG/2.5 ML AMP HHN ×4 (00:13→23:37)
[2017-06-22] MEDS: VANCOMYCIN 1.75 GM in SOD CHLORIDE 0.9% 500 ML IVPB ×3 (01:54→19:47)
[2017-06-22] MEDS: PANTOPRAZOLE (EC) 40 MG TAB PO (05:07)
[2017-06-22 05:09] LABS: ADD MAN DIFF? NO
[2017-06-22 05:15] LABS: ABNORMAL IP MESSAGE 1; BASOPHILS % 0.3 % (0.0-2.0); EOSINOPHILS # 0.2 10^3/ul (0.0-0.5); EOSINOPHILS % 2.4 % (0.0-7.0); HEMATOCRIT 34.2 % (42.0-52.0); HEMOGLOBIN 11.5 g/dl (14.0-18.0); LYMPHOCYTES # 2.1 10^3/ul (0.8-2.9); LYMPHOCYTES % 21.9 % (15.0-51.0); MEAN CORPUSCULAR HEMOGLOBIN 32.5 pg (29.0-33.0); MEAN CORPUSCULAR HGB CONC 33.6 g/dl (32.0-37.0); MEAN CORPUSCULAR VOLUME 96.6 fl (82.0-101.0); MEAN PLATELET VOLUME 11.7 fl (7.4-10.4); MONOCYTES % 10.7 % (0.0-11.0); PLATELET COUNT 90 10^3/UL (140-415); POSITIVE DIFF @See below; RED BLOOD COUNT 3.54 10^6/ul (4.70-6.10); RED CELL DISTRIBUTION WIDTH 12.5 % (11.5-14.5)
[2017-06-22 05:15] LABS: WHITE BLOOD COUNT 9.4 10^3/ul (4.8-10.8)
[2017-06-22 05:38] LABS: ANION GAP 12 (8-16); BLOOD UREA NITROGEN 8 mg/dl (7-20); CALCIUM 8.6 mg/dl (8.4-10.2); CARBON DIOXIDE 30 mmol/L (21-31); CHLORIDE 103 mmol/L (97-110); CREATININE 0.67 mg/dl (0.61-1.24); GLUCOSE 110 mg/dl (70-220); POTASSIUM 3.8 mmol/L (3.5-5.1); SODIUM 141 mmol/L (135-144)
[2017-06-22] MEDS: LACTOBACILLUS RHAMNOSUS CAP PO ×2 (08:58→21:08)
[2017-06-22] MEDS: PROPRANOLOL 20 MG TAB PO ×2 (08:58→21:08)
[2017-06-22] MEDS: RISPERIDONE 2 MG TAB PO ×2 (08:58→21:08)
[2017-06-22] MEDS: CEFEPIME 1GM/50 ML (PMX) 50 ML IVPB ×2 (08:59→21:07)
[2017-06-22] MEDS: QUETIAPINE 100 MG TAB PO ×2 (09:00→21:08)
[2017-06-22] MEDS: ENOXAPARIN 40 MG/0.4 ML SYG SC (09:00)
[2017-06-22 19:28] LABS: VANCOMYCIN,TROUGH 8.7 ug/ml (10.0-20.0)
[2017-06-22] MEDS: DOCUSATE SODIUM 100 MG CAP PO (21:08)
[2017-06-23] MEDS: VANCOMYCIN 1.75 GM in SOD CHLORIDE 0.9% 500 ML IVPB ×3 (01:41→18:47)
[2017-06-23] MEDS: PANTOPRAZOLE (EC) 40 MG TAB PO (05:32)
[2017-06-23 06:22] LABS: ADD MAN DIFF? NO
[2017-06-23 06:30] LABS: BASOPHILS % 0.5 % (0.0-2.0); EOSINOPHILS # 0.3 10^3/ul (0.0-0.5); EOSINOPHILS % 4.1 % (0.0-7.0); HEMATOCRIT 34.1 % (42.0-52.0); HEMOGLOBIN 11.4 g/dl (14.0-18.0); LYMPHOCYTES # 1.9 10^3/ul (0.8-2.9); LYMPHOCYTES % 23.1 % (15.0-51.0); MEAN CORPUSCULAR HEMOGLOBIN 32.1 pg (29.0-33.0); MEAN CORPUSCULAR HGB CONC 33.4 g/dl (32.0-37.0); MEAN CORPUSCULAR VOLUME 96.1 fl (82.0-101.0); MEAN PLATELET VOLUME 11.9 fl (7.4-10.4); MONOCYTES % 11.8 % (0.0-11.0); NEUTROPHIL # 4.8 10^3/ul (1.6-7.5); NEUTROPHILS % 59.9 % (39.0-77.0); PLATELET COUNT 102 10^3/UL (140-415); RED BLOOD COUNT 3.55 10^6/ul (4.70-6.10); RED CELL DISTRIBUTION WIDTH 12.4 % (11.5-14.5)
[2017-06-23 07:07] LABS: ANION GAP 14 (8-16); BLOOD UREA NITROGEN 6 mg/dl (7-20); CALCIUM 8.8 mg/dl (8.4-10.2); CARBON DIOXIDE 27 mmol/L (21-31); CHLORIDE 104 mmol/L (97-110); CREATININE 0.56 mg/dl (0.61-1.24); GLUCOSE 102 mg/dl (70-220); POTASSIUM 3.5 mmol/L (3.5-5.1); SODIUM 141 mmol/L (135-144)
[2017-06-23] MEDS: LEVALBUTEROL (NEB) 0.63 MG/3 ML AMP HHN ×2 (08:10→16:59)
[2017-06-23] MEDS: IPRATROPIUM (NEB) 0.5 MG/2.5 ML AMP HHN ×2 (08:10→16:59)
[2017-06-23] MEDS: ENOXAPARIN 40 MG/0.4 ML SYG SC (08:28)
[2017-06-23] MEDS: CEFEPIME 1GM/50 ML (PMX) 50 ML IVPB ×2 (08:28→21:31)
[2017-06-23] MEDS: LACTOBACILLUS RHAMNOSUS CAP PO ×2 (08:29→22:41)
[2017-06-23] MEDS: PROPRANOLOL 20 MG TAB PO ×2 (08:29→21:32)
[2017-06-23] MEDS: QUETIAPINE 100 MG TAB PO ×2 (08:30→22:41)
[2017-06-23] MEDS: RISPERIDONE 2 MG TAB PO ×2 (08:30→21:31)
[2017-06-23] MEDS: DOCUSATE SODIUM 100 MG CAP PO (21:31)
[2017-06-24] MEDS: IPRATROPIUM (NEB) 0.5 MG/2.5 ML AMP HHN ×4 (01:10→23:55)
[2017-06-24] MEDS: LEVALBUTEROL (NEB) 0.63 MG/3 ML AMP HHN ×4 (01:10→23:55)
[2017-06-24] MEDS: VANCOMYCIN 1.75 GM in SOD CHLORIDE 0.9% 500 ML IVPB (02:18)
[2017-06-24] MEDS: PANTOPRAZOLE (EC) 40 MG TAB PO (05:37)
[2017-06-24] MEDS: RISPERIDONE 2 MG TAB PO ×2 (08:49→21:09)
[2017-06-24] MEDS: QUETIAPINE 100 MG TAB PO ×2 (08:50→21:09)
[2017-06-24] MEDS: PROPRANOLOL 20 MG TAB PO ×2 (08:50→21:10)
[2017-06-24] MEDS: LACTOBACILLUS RHAMNOSUS CAP PO ×2 (08:50→21:09)
[2017-06-24] MEDS: ENOXAPARIN 40 MG/0.4 ML SYG SC (08:51)
[2017-06-24 09:08] LABS: ADD MAN DIFF? NO
[2017-06-24 09:21] LABS: WHITE BLOOD COUNT 6.4 10^3/ul (4.8-10.8)
[2017-06-24 09:21] LABS: BASOPHILS % 0.6 % (0.0-2.0); EOSINOPHILS # 0.3 10^3/ul (0.0-0.5); EOSINOPHILS % 4.7 % (0.0-7.0); HEMATOCRIT 34.1 % (42.0-52.0); HEMOGLOBIN 11.5 g/dl (14.0-18.0); LYMPHOCYTES # 1.5 10^3/ul (0.8-2.9); LYMPHOCYTES % 23.4 % (15.0-51.0); MEAN CORPUSCULAR HEMOGLOBIN 32.1 pg (29.0-33.0); MEAN CORPUSCULAR HGB CONC 33.7 g/dl (32.0-37.0); MEAN CORPUSCULAR VOLUME 95.3 fl (82.0-101.0); MEAN PLATELET VOLUME 11.6 fl (7.4-10.4); MONOCYTE # 0.9 10^3/ul (0.3-0.9); MONOCYTES % 13.8 % (0.0-11.0); NEUTROPHIL # 3.6 10^3/ul (1.6-7.5); PLATELET COUNT 108 10^3/UL (140-415); RED BLOOD COUNT 3.58 10^6/ul (4.70-6.10); RED CELL DISTRIBUTION WIDTH 12.5 % (11.5-14.5)
[2017-06-24 09:53] LABS: VANCOMYCIN,TROUGH 21.3 ug/ml (10.0-20.0)
[2017-06-24 09:53] LABS: ANION GAP 12 (8-16); BLOOD UREA NITROGEN 6 mg/dl (7-20); CALCIUM 8.7 mg/dl (8.4-10.2); CARBON DIOXIDE 30 mmol/L (21-31); CHLORIDE 104 mmol/L (97-110); CREATININE 0.59 mg/dl (0.61-1.24); GLUCOSE 109 mg/dl (70-220); PHOSPHORUS 4.1 mg/dl (2.5-4.9); POTASSIUM 3.6 mmol/L (3.5-5.1); SODIUM 142 mmol/L (135-144)
[2017-06-24] MEDS: CEFEPIME 1GM/50 ML (PMX) 50 ML IVPB (10:21)
[2017-06-24] MEDS: VANCOMYCIN 1.5 GM in SOD CHLORIDE 0.9% 250 ML IVPB (16:17)
[2017-06-24] MEDS: DOCUSATE SODIUM 100 MG CAP PO (21:08)
[2017-06-25] MEDS: PANTOPRAZOLE (EC) 40 MG TAB PO (05:27)
[2017-06-25] MEDS: LACTOBACILLUS RHAMNOSUS CAP PO ×2 (08:11→21:10)
[2017-06-25] MEDS: PROPRANOLOL 20 MG TAB PO ×2 (08:11→21:09)
[2017-06-25] MEDS: RISPERIDONE 2 MG TAB PO ×2 (08:11→21:10)
[2017-06-25] MEDS: QUETIAPINE 100 MG TAB PO ×2 (08:11→21:30)
[2017-06-25] MEDS: ENOXAPARIN 40 MG/0.4 ML SYG SC (08:12)
[2017-06-25] MEDS: DOXYCYCLINE 100 MG TAB PO ×2 (08:12→21:10)
[2017-06-25] MEDS: LEVALBUTEROL (NEB) 0.63 MG/3 ML AMP HHN ×2 (08:23→15:29)
[2017-06-25] MEDS: IPRATROPIUM (NEB) 0.5 MG/2.5 ML AMP HHN ×2 (08:23→15:29)
[2017-06-25 08:46] LABS: ADD MAN DIFF? NO
[2017-06-25 08:47] LABS: BASOPHIL # 0.1 10^3/ul (0.0-0.1); BASOPHILS % 0.7 % (0.0-2.0); EOSINOPHILS # 0.4 10^3/ul (0.0-0.5); HEMATOCRIT 35.5 % (42.0-52.0); HEMOGLOBIN 11.9 g/dl (14.0-18.0); LYMPHOCYTES # 1.9 10^3/ul (0.8-2.9); LYMPHOCYTES % 25.9 % (15.0-51.0); MEAN CORPUSCULAR HEMOGLOBIN 31.8 pg (29.0-33.0); MEAN CORPUSCULAR HGB CONC 33.5 g/dl (32.0-37.0); MEAN CORPUSCULAR VOLUME 94.9 fl (82.0-101.0); MEAN PLATELET VOLUME 11.5 fl (7.4-10.4); MONOCYTE # 0.9 10^3/ul (0.3-0.9); MONOCYTES % 12.2 % (0.0-11.0); NEUTROPHILS % 55.9 % (39.0-77.0); PLATELET COUNT 123 10^3/UL (140-415); POSITIVE DIFF @See below; RED BLOOD COUNT 3.74 10^6/ul (4.70-6.10); RED CELL DISTRIBUTION WIDTH 12.7 % (11.5-14.5)
[2017-06-25 08:47] LABS: WHITE BLOOD COUNT 7.1 10^3/ul (4.8-10.8)
[2017-06-25 09:11] LABS: ANION GAP 12 (8-16); BLOOD UREA NITROGEN 7 mg/dl (7-20); CALCIUM 8.9 mg/dl (8.4-10.2); CARBON DIOXIDE 30 mmol/L (21-31); CHLORIDE 100 mmol/L (97-110); CREATININE 0.61 mg/dl (0.61-1.24); GLUCOSE 105 mg/dl (70-220); PHOSPHORUS 4.1 mg/dl (2.5-4.9); POTASSIUM 3.8 mmol/L (3.5-5.1); SODIUM 138 mmol/L (135-144)
[2017-06-25] MEDS: LEVOFLOXACIN 500 MG TAB PO (12:05)
[2017-06-25] MEDS ORDERED: CEFEPIME 1GM/50 ML (PMX) 50 ML IVPB (14:00)
[2017-06-25] MEDS ORDERED: VANCOMYCIN 1.75 GM in SOD CHLORIDE 0.9% 500 ML IVPB (14:00)
[2017-06-25] MEDS: DOCUSATE SODIUM 100 MG CAP PO (21:10)
[2017-06-26] MEDS: IPRATROPIUM (NEB) 0.5 MG/2.5 ML AMP HHN ×4 (00:10→23:31)
[2017-06-26] MEDS: LEVALBUTEROL (NEB) 0.63 MG/3 ML AMP HHN ×4 (00:11→23:31)
[2017-06-26] MEDS: PANTOPRAZOLE (EC) 40 MG TAB PO (05:54)
[2017-06-26] MEDS: LEVOFLOXACIN 500 MG TAB PO (05:54)
[2017-06-26 07:57] LABS: ADD MAN DIFF? NO
[2017-06-26 08:03] LABS: WHITE BLOOD COUNT 7.7 10^3/ul (4.8-10.8)
[2017-06-26 08:03] LABS: BASOPHILS % 0.5 % (0.0-2.0); EOSINOPHILS # 0.3 10^3/ul (0.0-0.5); EOSINOPHILS % 4.4 % (0.0-7.0); HEMATOCRIT 36.1 % (42.0-52.0); HEMOGLOBIN 12.1 g/dl (14.0-18.0); LYMPHOCYTES # 2.2 10^3/ul (0.8-2.9); LYMPHOCYTES % 28.9 % (15.0-51.0); MEAN CORPUSCULAR HEMOGLOBIN 32.2 pg (29.0-33.0); MEAN CORPUSCULAR HGB CONC 33.5 g/dl (32.0-37.0); MEAN PLATELET VOLUME 11.7 fl (7.4-10.4); MONOCYTES % 12.4 % (0.0-11.0); NEUTROPHIL # 4.1 10^3/ul (1.6-7.5); NEUTROPHILS % 53.4 % (39.0-77.0); PLATELET COUNT 141 10^3/UL (140-415); RED BLOOD COUNT 3.76 10^6/ul (4.70-6.10); RED CELL DISTRIBUTION WIDTH 12.5 % (11.5-14.5)
[2017-06-26] MEDS: ENOXAPARIN 40 MG/0.4 ML SYG SC (08:18)
[2017-06-26] MEDS: QUETIAPINE 100 MG TAB PO ×2 (08:20→21:01)
[2017-06-26] MEDS: RISPERIDONE 2 MG TAB PO ×2 (08:20→21:02)
[2017-06-26] MEDS: DOXYCYCLINE 100 MG TAB PO ×2 (08:20→21:01)
[2017-06-26] MEDS: LACTOBACILLUS RHAMNOSUS CAP PO ×2 (08:20→21:07)
[2017-06-26] MEDS: PROPRANOLOL 20 MG TAB PO ×2 (08:20→21:01)
[2017-06-26 08:28] LABS: ANION GAP 11 (8-16); BLOOD UREA NITROGEN 9 mg/dl (7-20); CALCIUM 9.2 mg/dl (8.4-10.2); CARBON DIOXIDE 32 mmol/L (21-31); CHLORIDE 104 mmol/L (97-110); CREATININE 0.63 mg/dl (0.61-1.24); GLUCOSE 106 mg/dl (70-220); PHOSPHORUS 4.7 mg/dl (2.5-4.9); POTASSIUM 3.8 mmol/L (3.5-5.1); SODIUM 143 mmol/L (135-144)
[2017-06-26] MEDS: METHYLPREDNISOLONE 40 MG INJ IV ×2 (13:10→21:02)
[2017-06-26] MEDS: BUDESONIDE (NEB) 0.5MG/2ML AMP HHN (20:00)
[2017-06-26] MEDS: DOCUSATE SODIUM 100 MG CAP PO (21:01)
[2017-06-27] MEDS: LEVOFLOXACIN 500 MG TAB PO (05:32)
[2017-06-27] MEDS: PANTOPRAZOLE (EC) 40 MG TAB PO (05:32)
[2017-06-27 07:11] LABS: ADD MAN DIFF? NO
[2017-06-27 07:14] LABS: BASOPHILS % 0.1 % (0.0-2.0); HEMATOCRIT 37.3 % (42.0-52.0); HEMOGLOBIN 12.9 g/dl (14.0-18.0); LYMPHOCYTES # 1.8 10^3/ul (0.8-2.9); LYMPHOCYTES % 13.1 % (15.0-51.0); MEAN CORPUSCULAR HEMOGLOBIN 32.5 pg (29.0-33.0); MEAN CORPUSCULAR HGB CONC 34.6 g/dl (32.0-37.0); MEAN PLATELET VOLUME 11.7 fl (7.4-10.4); MONOCYTE # 0.4 10^3/ul (0.3-0.9); MONOCYTES % 3.1 % (0.0-11.0); NEUTROPHIL # 11.3 10^3/ul (1.6-7.5); NEUTROPHILS % 83.2 % (39.0-77.0); PLATELET COUNT 169 10^3/UL (140-415); RED BLOOD COUNT 3.97 10^6/ul (4.70-6.10); RED CELL DISTRIBUTION WIDTH 12.4 % (11.5-14.5)
[2017-06-27 07:14] LABS: WHITE BLOOD COUNT 13.6 10^3/ul (4.8-10.8)
[2017-06-27 07:47] LABS: ANION GAP 16 (8-16); BLOOD UREA NITROGEN 12 mg/dl (7-20); CALCIUM 9.7 mg/dl (8.4-10.2); CARBON DIOXIDE 26 mmol/L (21-31); CHLORIDE 103 mmol/L (97-110); CREATININE 0.59 mg/dl (0.61-1.24); GLUCOSE 166 mg/dl (70-220); MAGNESIUM 2.1 mg/dl (1.7-2.5); PHOSPHORUS 4.3 mg/dl (2.5-4.9); POTASSIUM 3.9 mmol/L (3.5-5.1); SODIUM 141 mmol/L (135-144)
[2017-06-27] MEDS: IPRATROPIUM (NEB) 0.5 MG/2.5 ML AMP HHN ×3 (08:00→23:50)
[2017-06-27] MEDS: LEVALBUTEROL (NEB) 0.63 MG/3 ML AMP HHN ×3 (08:00→23:50)
[2017-06-27] MEDS: DOXYCYCLINE 100 MG TAB PO ×2 (08:22→21:05)
[2017-06-27] MEDS: RISPERIDONE 2 MG TAB PO ×2 (08:22→21:03)
[2017-06-27] MEDS: PROPRANOLOL 20 MG TAB PO ×2 (08:24→21:04)
[2017-06-27] MEDS: QUETIAPINE 100 MG TAB PO ×2 (08:24→21:03)
[2017-06-27] MEDS: METHYLPREDNISOLONE 40 MG INJ IV ×2 (08:25→21:02)
[2017-06-27] MEDS: ENOXAPARIN 40 MG/0.4 ML SYG SC (08:26)
[2017-06-27] MEDS: BUDESONIDE (NEB) 0.5MG/2ML AMP HHN ×2 (09:25→23:50)
[2017-06-27] MEDS: LACTOBACILLUS RHAMNOSUS CAP PO ×2 (09:56→21:03)
[2017-06-27] MEDS: DOCUSATE SODIUM 100 MG CAP PO (21:03)
[2017-06-28] MEDS: PANTOPRAZOLE (EC) 40 MG TAB PO (05:46)
[2017-06-28] MEDS: LEVOFLOXACIN 500 MG TAB PO (05:46)
[2017-06-28 06:52] LABS: ADD MAN DIFF? NO
[2017-06-28 06:58] LABS: WHITE BLOOD COUNT 14.7 10^3/ul (4.8-10.8)
[2017-06-28 06:58] LABS: BASOPHILS % 0.1 % (0.0-2.0); HEMATOCRIT 36.9 % (42.0-52.0); HEMOGLOBIN 12.3 g/dl (14.0-18.0); LYMPHOCYTES # 2.3 10^3/ul (0.8-2.9); LYMPHOCYTES % 15.7 % (15.0-51.0); MEAN CORPUSCULAR HEMOGLOBIN 31.5 pg (29.0-33.0); MEAN CORPUSCULAR HGB CONC 33.3 g/dl (32.0-37.0); MEAN CORPUSCULAR VOLUME 94.6 fl (82.0-101.0); MEAN PLATELET VOLUME 11.4 fl (7.4-10.4); MONOCYTE # 0.9 10^3/ul (0.3-0.9); MONOCYTES % 6.2 % (0.0-11.0); NEUTROPHIL # 11.3 10^3/ul (1.6-7.5); NEUTROPHILS % 77.1 % (39.0-77.0); PLATELET COUNT 180 10^3/UL (140-415); RED CELL DISTRIBUTION WIDTH 12.6 % (11.5-14.5)
[2017-06-28 07:18] LABS: ANION GAP 12 (8-16); BLOOD UREA NITROGEN 13 mg/dl (7-20); CALCIUM 9.6 mg/dl (8.4-10.2); CARBON DIOXIDE 31 mmol/L (21-31); CHLORIDE 105 mmol/L (97-110); CREATININE 0.62 mg/dl (0.61-1.24); GLUCOSE 130 mg/dl (70-220); MAGNESIUM 2.2 mg/dl (1.7-2.5); PHOSPHORUS 4.7 mg/dl (2.5-4.9); POTASSIUM 4.5 mmol/L (3.5-5.1); SODIUM 143 mmol/L (135-144)
[2017-06-28] MEDS: IPRATROPIUM (NEB) 0.5 MG/2.5 ML AMP HHN (07:55)
[2017-06-28] MEDS: LEVALBUTEROL (NEB) 0.63 MG/3 ML AMP HHN (07:55)
[2017-06-28] MEDS: METHYLPREDNISOLONE 40 MG INJ IV ×2 (08:30→21:11)
[2017-06-28] MEDS: RISPERIDONE 2 MG TAB PO ×2 (08:31→21:12)
[2017-06-28] MEDS: PROPRANOLOL 20 MG TAB PO ×2 (08:31→21:12)
[2017-06-28] MEDS: NICOTINE (7 MG/24 HR) PATCH TRANSDERM (08:31)
[2017-06-28] MEDS: QUETIAPINE 100 MG TAB PO ×2 (08:32→21:12)
[2017-06-28] MEDS: DOXYCYCLINE 100 MG TAB PO ×2 (08:32→21:12)
[2017-06-28] MEDS: LACTOBACILLUS RHAMNOSUS CAP PO ×2 (08:32→21:11)
[2017-06-28] MEDS: ENOXAPARIN 40 MG/0.4 ML SYG SC (08:33)
[2017-06-28] MEDS: SALMETEROL/FLUTICASONE 250/50 INHA INH ×2 (13:05→21:11)
[2017-06-28] MEDS: TIOTROPIUM 18 MCG CAPSULE INHA DEV INH (13:05)
[2017-06-28] MEDS: DOCUSATE SODIUM 100 MG CAP PO (21:11)
[2017-06-29] MEDS: PANTOPRAZOLE (EC) 40 MG TAB PO (05:32)
[2017-06-29] MEDS: LEVOFLOXACIN 500 MG TAB PO (05:32)
[2017-06-29 05:55] LABS: ADD MAN DIFF? NO
[2017-06-29 06:05] LABS: WHITE BLOOD COUNT 13.2 10^3/ul (4.8-10.8)
[2017-06-29 06:05] LABS: BASOPHILS % 0.1 % (0.0-2.0); HEMOGLOBIN 12.9 g/dl (14.0-18.0); LYMPHOCYTES # 2.4 10^3/ul (0.8-2.9); LYMPHOCYTES % 17.9 % (15.0-51.0); MEAN CORPUSCULAR HEMOGLOBIN 31.5 pg (29.0-33.0); MEAN CORPUSCULAR HGB CONC 33.1 g/dl (32.0-37.0); MEAN CORPUSCULAR VOLUME 95.4 fl (82.0-101.0); MEAN PLATELET VOLUME 11.1 fl (7.4-10.4); MONOCYTE # 0.8 10^3/ul (0.3-0.9); MONOCYTES % 6.1 % (0.0-11.0); NEUTROPHIL # 9.9 10^3/ul (1.6-7.5); PLATELET COUNT 189 10^3/UL (140-415); RED BLOOD COUNT 4.09 10^6/ul (4.70-6.10); RED CELL DISTRIBUTION WIDTH 12.5 % (11.5-14.5)
[2017-06-29 06:35] LABS: ANION GAP 14 (8-16); BLOOD UREA NITROGEN 16 mg/dl (7-20); CALCIUM 9.7 mg/dl (8.4-10.2); CARBON DIOXIDE 30 mmol/L (21-31); CHLORIDE 105 mmol/L (97-110); CREATININE 0.64 mg/dl (0.61-1.24); GLUCOSE 133 mg/dl (70-220); MAGNESIUM 2.2 mg/dl (1.7-2.5); PHOSPHORUS 5.3 mg/dl (2.5-4.9); POTASSIUM 4.4 mmol/L (3.5-5.1); SODIUM 145 mmol/L (135-144)
[2017-06-29] MEDS: RISPERIDONE 2 MG TAB PO ×2 (09:37→21:10)
[2017-06-29] MEDS: TIOTROPIUM 18 MCG CAPSULE INHA DEV INH (09:37)
[2017-06-29] MEDS: DOXYCYCLINE 100 MG TAB PO ×2 (09:37→21:10)
[2017-06-29] MEDS: LACTOBACILLUS RHAMNOSUS CAP PO ×2 (09:37→21:09)
[2017-06-29] MEDS: QUETIAPINE 100 MG TAB PO ×2 (09:38→21:10)
[2017-06-29] MEDS: PROPRANOLOL 20 MG TAB PO ×2 (09:38→21:10)
[2017-06-29] MEDS: METHYLPREDNISOLONE 40 MG INJ IV (09:39)
[2017-06-29] MEDS: SALMETEROL/FLUTICASONE 250/50 INHA INH ×2 (09:39→21:09)
[2017-06-29] MEDS: ENOXAPARIN 40 MG/0.4 ML SYG SC (09:51)
[2017-06-29] MEDS: predniSONE 20 MG TAB PO (12:32)
[2017-06-29] MEDS: DOCUSATE SODIUM 100 MG CAP PO (21:09)
[2017-06-30] MEDS: PANTOPRAZOLE (EC) 40 MG TAB PO (05:28)
[2017-06-30] MEDS: LEVOFLOXACIN 500 MG TAB PO (05:28)
[2017-06-30 06:54] LABS: ADD MAN DIFF? NO
[2017-06-30 06:58] LABS: BASOPHILS % 0.1 % (0.0-2.0); EOSINOPHILS # 0.1 10^3/ul (0.0-0.5); EOSINOPHILS % 0.4 % (0.0-7.0); HEMATOCRIT 37.5 % (42.0-52.0); HEMOGLOBIN 12.8 g/dl (14.0-18.0); LYMPHOCYTES % 28.9 % (15.0-51.0); MEAN CORPUSCULAR HEMOGLOBIN 32.2 pg (29.0-33.0); MEAN CORPUSCULAR HGB CONC 34.1 g/dl (32.0-37.0); MEAN CORPUSCULAR VOLUME 94.2 fl (82.0-101.0); MONOCYTE # 1.1 10^3/ul (0.3-0.9); MONOCYTES % 7.6 % (0.0-11.0); NEUTROPHIL # 8.7 10^3/ul (1.6-7.5); PLATELET COUNT 183 10^3/UL (140-415); RED BLOOD COUNT 3.98 10^6/ul (4.70-6.10); RED CELL DISTRIBUTION WIDTH 12.6 % (11.5-14.5)
[2017-06-30 07:29] LABS: ANION GAP 12 (8-16); BLOOD UREA NITROGEN 19 mg/dl (7-20); CALCIUM 9.4 mg/dl (8.4-10.2); CARBON DIOXIDE 31 mmol/L (21-31); CHLORIDE 105 mmol/L (97-110); CREATININE 0.73 mg/dl (0.61-1.24); GLUCOSE 104 mg/dl (70-220); MAGNESIUM 2.2 mg/dl (1.7-2.5); PHOSPHORUS 4.3 mg/dl (2.5-4.9); POTASSIUM 3.9 mmol/L (3.5-5.1); SODIUM 144 mmol/L (135-144)
[2017-06-30] MEDS: SALMETEROL/FLUTICASONE 250/50 INHA INH ×2 (08:12→20:56)
[2017-06-30] MEDS: TIOTROPIUM 18 MCG CAPSULE INHA DEV INH (08:13)
[2017-06-30] MEDS: LACTOBACILLUS RHAMNOSUS CAP PO ×2 (08:14→20:57)
[2017-06-30] MEDS: RISPERIDONE 2 MG TAB PO ×2 (08:16→20:58)
[2017-06-30] MEDS: DOXYCYCLINE 100 MG TAB PO ×2 (08:16→20:58)
[2017-06-30] MEDS: ENOXAPARIN 40 MG/0.4 ML SYG SC (08:19)
[2017-06-30] MEDS: predniSONE 20 MG TAB PO (08:22)
[2017-06-30] MEDS: PROPRANOLOL 20 MG TAB PO ×2 (08:23→20:57)
[2017-06-30] MEDS: QUETIAPINE 100 MG TAB PO ×2 (08:29→20:58)
[2017-06-30] MEDS: DOCUSATE SODIUM 100 MG CAP PO (20:57)
[2017-07-01] MEDS: LEVOFLOXACIN 500 MG TAB PO (05:40)
[2017-07-01] MEDS: PANTOPRAZOLE (EC) 40 MG TAB PO (05:40)
[2017-07-01 07:07] LABS: ADD MAN DIFF? NO
[2017-07-01 07:12] LABS: BASOPHILS % 0.3 % (0.0-2.0); EOSINOPHILS # 0.2 10^3/ul (0.0-0.5); EOSINOPHILS % 1.9 % (0.0-7.0); HEMATOCRIT 40.3 % (42.0-52.0); HEMOGLOBIN 13.3 g/dl (14.0-18.0); LYMPHOCYTES # 4.2 10^3/ul (0.8-2.9); LYMPHOCYTES % 39.8 % (15.0-51.0); MEAN CORPUSCULAR VOLUME 93.9 fl (82.0-101.0); MEAN PLATELET VOLUME 10.7 fl (7.4-10.4); MONOCYTE # 0.9 10^3/ul (0.3-0.9); MONOCYTES % 8.4 % (0.0-11.0); NEUTROPHIL # 5.1 10^3/ul (1.6-7.5); NEUTROPHILS % 48.4 % (39.0-77.0); PLATELET COUNT 166 10^3/UL (140-415); POSITIVE DIFF @See below; RED BLOOD COUNT 4.29 10^6/ul (4.70-6.10)
[2017-07-01 07:12] LABS: WHITE BLOOD COUNT 10.5 10^3/ul (4.8-10.8)
[2017-07-01 07:37] LABS: PHOSPHORUS 4.9 mg/dl (2.5-4.9)
[2017-07-01 07:37] LABS: ANION GAP 15 (8-16); BLOOD UREA NITROGEN 22 mg/dl (7-20); CALCIUM 9.3 mg/dl (8.4-10.2); CARBON DIOXIDE 27 mmol/L (21-31); CHLORIDE 103 mmol/L (97-110); CREATININE 0.77 mg/dl (0.61-1.24); GLUCOSE 86 mg/dl (70-220); MAGNESIUM 2.2 mg/dl (1.7-2.5); POTASSIUM 3.6 mmol/L (3.5-5.1); SODIUM 141 mmol/L (135-144)
[2017-07-01] MEDS: DOXYCYCLINE 100 MG TAB PO (09:01)
[2017-07-01] MEDS: RISPERIDONE 2 MG TAB PO (09:02)
[2017-07-01] MEDS: QUETIAPINE 100 MG TAB PO (09:02)
[2017-07-01] MEDS: LACTOBACILLUS RHAMNOSUS CAP PO (09:02)
[2017-07-01] MEDS: predniSONE 20 MG TAB PO (09:02)
[2017-07-01] MEDS: PROPRANOLOL 20 MG TAB PO (09:02)
[2017-07-01] MEDS: TIOTROPIUM 18 MCG CAPSULE INHA DEV INH (09:03)
[2017-07-01] MEDS: SALMETEROL/FLUTICASONE 250/50 INHA INH (09:04)
[2017-07-01] MEDS: ENOXAPARIN 40 MG/0.4 ML SYG SC (09:06)
[2017-07-01 09:49] LABS: ANISOCYTOSIS 1+ (0-0); BAND NEUTROPHILS #M 0.2 10^3/ul (0.0-0.6); BAND NEUTROPHILS % (M) 2 % (0-4); EOSINOPHILS % (M) 2 % (0-7); LYMPHOCYTES #M 4.4 10^3/ul (0.8-2.9); LYMPHOCYTES % (M) 42 % (15-51); MONOCYTE #M 0.1 10^3/ul (0.3-0.9); MONOCYTES % (M) 1 % (0-11); MYELOCYTES #M 0.2 10^3/ul (0.0-0.0); MYELOCYTES % (M) 2 % (0-0); PLATELET ESTIMATE NORMAL; POLYCHROMASIA 3+ (0-0); REACTIVE LYMPHOCYTES #M 0.2 10^3/ul (0.0-0.0); REACTIVE LYMPHOCYTES% (M) 2 % (0-0); SEG NEUT #M 5.2 10^3/ul (1.6-7.5); SEGMENTED NEUTROPHILS (M) % 49 % (39-77)
== END 2017-07-01 15:55 | disposition home or self-care (01) | DRG 853 ==
LOC: PP2 06-12 02:57 → ICU 06-19 15:17 → MS4 06-23 11:37
PROC: 0BCL4ZZ Extirpation of Matter from Left Lung, Percutaneous Endoscopic Approach (ICD-10-PCS; principal; 2017-06-19 11:30)
PROC: 0W9B3ZX Drainage of Left Pleural Cavity, Percutaneous Approach, Diagnostic (ICD-10-PCS; 2017-06-19 12:50)
PROC: 5A09357 Assistance with Respiratory Ventilation, Less than 24 Consecutive Hours, Continuous Positive Airway Pressure (ICD-10-PCS; 2017-06-19 12:50)
DX: A41.9 Sepsis, unspecified organism (principal); J86.9 Pyothorax without fistula; J18.9 Pneumonia, unspecified organism; J96.01 Acute respiratory failure with hypoxia; J90 Pleural effusion, not elsewhere classified; F20.9 Schizophrenia, unspecified; D64.9 Anemia, unspecified; E66.01 Morbid (severe) obesity due to excess calories; F17.200 Nicotine dependence, unspecified, uncomplicated; D69.6 Thrombocytopenia, unspecified; Z68.37 Body mass index [BMI] 37.0-37.9, adult
CPT/HCPCS: 36600; 71045; 71250; 76942; 80048; 80053; 80061; 80202; 82042; 82150; 82550; 82553; 82565; 82803; 82945; 83036; 83605; 83615; 83735; 83880; 83986; 84100; 84157; 84443; 84484; 84520; 85025; 85049; 85378; 85610; 85670; 85730; 86038; 86480; 86580; 86635; 86850; 86900; 86901; 87040; 87070; 87075; 87081; 87102; 87116; 88307; 89051; 93306; 94640; 94660; 94664; 97116; 97162; 97530

== ENCOUNTER 2018-03-26 11:58 | Day surgery (SDC) | payer OTHER ==
[2018-03-26] MEDS ORDERED: PROPOFOL 20 ML (15:00)
[2018-03-26] MEDS ORDERED: MIDAZOLAM 1 MG/ML 2 ML INJ (15:00)
== END 2018-03-26 16:10 | disposition home or self-care (01) ==
LOC: GIL 11:58
DX: I85.00 Esophageal varices without bleeding (principal); E78.5 Hyperlipidemia, unspecified; I10 Essential (primary) hypertension; J45.909 Unspecified asthma, uncomplicated
CPT/HCPCS: 43235

== ENCOUNTER 2018-06-05 08:07 | Day surgery (SDC) | payer OTHER ==
[2018-06-05] MEDS: LIDOCAINE 1% (MDV) 20 ML INJ (10:13)
== END 2018-06-05 13:48 | disposition home or self-care (01) ==
LOC: SDS 08:07
DX: K75.81 Nonalcoholic steatohepatitis (NASH) (principal)
CPT/HCPCS: 47000; 76942; 88307; 88313